=== PATIENT | male | born 1965 | race Caucasian/White ===

== ENCOUNTER 2018-02-25 11:17 | Emergency (ER) | payer MEDICARE, SELFPAY ==
[2018-02-25] MEDS ORDERED: predniSONE 20 MG TAB ONE (11:58)
--- NOTE | 2018-02-25 12:22 | RAD ---
CHEST TWO VIEWS: Comparison: 02-14-15 History: Cough. FINDINGS: Normal cardiac silhouette. The pulmonary vessels and hilum are normal. Costophrenic angles are clear. No consolidation or mass. No pneumothorax or osseous abnormality. IMPRESSION: No acute cardiopulmonary process. POS: H
== END 2018-02-25 12:34 | disposition home or self-care (01) ==
LOC: ERS 11:17
DX: J06.9 Acute upper respiratory infection, unspecified (principal); I10 Essential (primary) hypertension; E11.9 Type 2 diabetes mellitus without complications; F17.210 Nicotine dependence, cigarettes, uncomplicated
CPT/HCPCS: 71046; 94640; J7506; J7620

== ENCOUNTER 2018-09-14 12:07 | Emergency (ER) | payer MEDICARE ==
--- NOTE | 2018-09-14 13:40 | RAD ---
PA AND LATERAL VIEWS CHEST: Date: 09/14/18 HISTORY: Throat cancer. Cough, fever, and chest congestion. FINDINGS: Comparison made with exam of 02/25/18. Heart size normal. Aorta tortuous. Lungs well expanded without lobar consolidation, pneumothoraces, o r pleural effusions. Degenerative changes in spine. IMPRESSION: No radiographic evidence of acute cardiopulmonary process. POS: [facility]
== END 2018-09-14 14:13 | disposition home or self-care (01) ==
LOC: ERS 12:07
DX: J20.9 Acute bronchitis, unspecified (principal); I10 Essential (primary) hypertension; E11.9 Type 2 diabetes mellitus without complications; F17.210 Nicotine dependence, cigarettes, uncomplicated
CPT/HCPCS: 36416; 71046

== ENCOUNTER 2018-11-04 07:14 | Day surgery (SDC) | payer MEDICARE ==
[2018-11-03 10:51] VITALS: BMI 25.0
[2018-11-04] MEDS ORDERED: EPINEPHrine 1 MG/ML AMP ONE (09:23)
[2018-11-04] MEDS ORDERED: Lidocaine 4% Topical Sol 50 ML BOT ONE (09:23)
[2018-11-04] MEDS ORDERED: Propofol 500 MG/50 ML VIAL ONE (09:23)
[2018-11-04] MEDS ORDERED: Fentanyl 100 MCG/2 ML VIAL ONE (09:23)
[2018-11-04] MEDS ORDERED: Hydrocodone-Acetamin 15 ML UDCUP ONE (12:22)
[2018-11-04] MEDS ORDERED: PROPOFOL 200 MG/20 ML VIAL ONE (15:18)
[2018-11-04] MEDS ORDERED: Rocuronium Bromide 10 MG/ML (10ML VIAL) ONE (15:18)
[2018-11-04] MEDS ORDERED: Succinylcholine Chloride 20 MG/ML 10 ml SYRINGE FS ONE (15:18)
[2018-11-04] MEDS ORDERED: Glycopyrrolate 0.2 MG/ML 5 ML SYRINGE ONE (15:18)
[2018-11-04] MEDS ORDERED: Lidocaine 1% PF 5 ML VIAL ONE (15:18)
[2018-11-04] MEDS ORDERED: Ondansetron PF 4 MG/2 ML Vial ONE (15:18)
[2018-11-04] MEDS ORDERED: Dexamethasone 20 MG/5 ML VIAL ONE (15:18)
--- NOTE | 2018-11-05 11:00 | OP ---
DATE OF PROCEDURE: 11/04/2018 PREOPERATIVE DIAGNOSES: 1. Right vocal cord mass. 2. Dysphonia. 3. History of malignant neoplasm of the larynx. ESTIMATED BLOOD LOSS: 0 mL. COMPLICATIONS: None. ANESTHESIA: GETA with Soila Jet ventilation tube. PROCEDURE PERFORMED: Microsuspension direct laryngoscopy with biopsy. DESCRIPTION OF PROCEDURE: The patient was taken to the operating room and placed supine on the table. Mask anesthesia was obtained by the anesthesia staff. The head of bed was turned to 90 degrees. Shoulder roll was placed. The Dedo laryngoscope was used to examine the oral cavity and oropharynx, which were clear. The laryngeal inlet was then visualized and the Soila Jet ventilation tube was placed into the trachea. Following this, the tube was secured in the left lower lip. The remainder of the laryngeal structures were then examined using the Dedo laryngoscope. The vallecula, epiglottis, pyriform sinuses, and postcricoid mucosa were all healthy. 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 Biopsies were taken from these 2 areas using the cup forceps. Epinephrine-soaked pledgets were then placed on this area for approximately 3 minutes. The patient tolerated the procedure well. Job ID: [id number]
--- NOTE | 2018-11-07 13:29 | EKG ---
Test Reason : PREOP Blood Pressure : / mmHG Vent. Rate : 082 BPM Atrial Rate : 082 BPM P-R Int : 132 ms QRS Dur : 086 ms QT Int : 388 ms P-R-T Axes : 023 068 065 degrees QTc Int : 453 ms Normal sinus rhythm Normal ECG When compared with ECG of 24-NOV-2014 19:10, No significant change was found Confirmed by DR. Nancy BULL ([id number]) on 11/07/2018 1:29:24 PM Referred By: EBONY Confirmed By:DR. Nancy BULL
== END 2018-11-04 12:30 | disposition home or self-care (01) ==
LOC: SDC 07:14
PROVIDERS: ATTEND Otolaryngology Plastic Surgery within the Head & Neck
PROC: 0CBS8ZX Excision of Larynx, Via Natural or Artificial Opening Endoscopic, Diagnostic (ICD-10-PCS; principal; 2018-11-04)
DX: C32.9 Malignant neoplasm of larynx, unspecified (principal); I10 Essential (primary) hypertension; E11.9 Type 2 diabetes mellitus without complications; J45.909 Unspecified asthma, uncomplicated; F41.9 Anxiety disorder, unspecified; E78.00 Pure hypercholesterolemia, unspecified
CPT/HCPCS: 88305; 93005; 93010; J0171; J1100; J2001; J2405; J2704; J3010

== ENCOUNTER 2025-01-26 11:37 | Emergency (ER) | payer MEDICARE ==
[2025-01-26 12:30] LABS: #Basophils 0.04 10x3/uL (0.0-0.2); #Eosinophils 0.14 10x3/uL (0.0-0.7); #Monocytes 1.28 10x3/uL (0.11-0.59); #Neutrophils 12.52 10x3/uL (1.40-6.50); %Basophils 0.2 % (0.0-1.0); %Eosinophils 0.9 % (0.0-10.0); %Lymphocytes 13.4 % (21.0-51.0); %Monocytes 7.9 % (0.0-10.0); %Neutrophils 77.0 % (42.0-75.0); Hematocrit 50.2 % (42.0-52.0); Hemoglobin 16.6 g/dL (14.0-18.0); Mean Corpuscular Hemoglobin 30.3 pg (27.0-31.0); Mean Corpuscular Volume 91.6 fL (78.0-98.0); Platelet Count 242 10x3/uL (130-400); Red Blood Cell (RBC) Count 5.48 mill/uL (4.70-6.10); White Blood Cell (WBC) Count 16.26 10x3/uL (4.8-10.8)
[2025-01-26 12:45] LABS: Bacteria/HPF 1+ HPF (None Seen); CAUTI Indications for Culture Pelvic or flank pain; Glucose, Urine (Dipstick) Normal (Negative); Leukocyte Negative Leu/uL (Negative); Protein, Urine (Dipstick) 30 mg/dL (Neg-Trace); RBC/HPF 0-3 HPF (0-3); Specific Gravity, Urine 1.033 (1.002-1.036); WBC/HPF 0-3 HPF (0-3)
[2025-01-26 12:46] LABS: Urine Culture Reflex No No
[2025-01-26 12:48] LABS: Cocaine Metabolite Screen Negative (Negative); THC/Cannabinoid Screen PRELIM POSITIVE (Negative); Tricyclic Screen Negative (Negative)
[2025-01-26 12:51] LABS: Lipase 24 U/L (8-78); Magnesium 2.4 mg/dL (1.6-2.6)
[2025-01-26 12:52] LABS: ALT (SGPT) 16 U/L (Less than 45); AST (SGOT) 22 U/L (11-34); Acetaminophen Less than 10 mcg/mL (Less than 10); Albumin 4.2 g/dL (3.1-4.5); Alkaline Phosphatase 71 U/L (40-110); Anion Gap 13 mmol/L (10-20); BUN (Urea Nitrogen) 21 mg/dL (8.4-25.7); Bilirubin, Total 1.2 mg/dL (0.3-1.2); Calc. Creatinine Clearance 0 mL/min (70-130); Calcium 9.3 mg/dL (7.8-10.44); Carbon Dioxide 26 mmol/L (22-29); Chloride 104 mmol/L (98-107); Globulin 3.4 g/dL (2.4-3.5); Glucose 135 mg/dL (70-105); Potassium 3.3 mmol/L (3.5-5.1); Salicylate Less than 8.0 mg/dL (Less than 8.0); Sodium 140 mmol/L (136-145)
== END 2025-01-26 14:00 | disposition home or self-care (01) ==
LOC: ERS 11:37
DX: J15.9 Unspecified bacterial pneumonia (principal); E86.0 Dehydration; I10 Essential (primary) hypertension; E11.9 Type 2 diabetes mellitus without complications; F17.210 Nicotine dependence, cigarettes, uncomplicated
CPT/HCPCS: 71045; 74176; 80053; 80306; 80307 ×2; 81001; 83605; 83690; 83735; 85025; 93005; J2543; 96361; 96365